=== PATIENT | female | born 1990 | race Caucasian/White ===

== ENCOUNTER 2017-02-19 08:45 | Emergency (ER) | payer MEDICAID ==
[~2017-02-19] VITALS: Ht 162.6 cm; Wt 61.7 kg
[~2017-02-19 08:45] MED LIST: BUSP5TAB3 PO; CYCL-1 PO; FAMO20TA44 PO; LORA-269 PO; NAPR-1144 PO; NITR100C6 PO; NO HOME MEDS; OMEP20CA10 PO; ONDA4TAB6 PO; PANT-47 PO; PHEN-716 PO; VALA10002 PO
[2017-02-19 10:11] VITALS: BP 101/62
== END 2017-02-19 10:10 | disposition home or self-care (01) ==
LOC: ER 08:46
DX: J02.9 Acute pharyngitis, unspecified (principal); K21.9 Gastro-esophageal reflux disease without esophagitis; Z87.11 Personal history of peptic ulcer disease; Z88.2 Allergy status to sulfonamides; Z88.1 Allergy status to other antibiotic agents
CPT/HCPCS: 87081; 87880; 99284

== ENCOUNTER 2017-03-31 18:07 | Emergency (ER) | payer SELFPAY ==
[~2017-03-31] VITALS: Ht 160 cm; Wt 59.1 kg
[~2017-03-31 18:07] MED LIST changes: -BUSP5TAB3 PO
[2017-03-31 19:24] LABS: BASOPHILS % (AUTO) 0.5 % (0-1); EOSINOPHILS # (AUTO) 0.1 X10'3 (0-0.9); EOSINOPHILS % (AUTO) 1.7 % (0-6); HEMATOCRIT 35.5 % (35.0-45.0); LYMPHOCYTES # (AUTO) 1.2 X10'3 (1.1-4.8); LYMPHOCYTES % (AUTO) 22.6 % (21-51); MEAN CORPUSCULAR HEMOGLOBIN 32.2 PG (27.0-31.0); MEAN CORPUSCULAR HGB CONC 33.8 % (33.0-36.5); MEAN CORPUSCULAR VOLUME 95.4 FL (78-98); MEAN PLATELET VOLUME 7.9 FL (7.4-10.4); MONOCYTES # (AUTO) 0.3 X10'3 (0-0.9); MONOCYTES % (AUTO) 5.5 % (2-12); NEUTROPHILS # (AUTO) 3.7 X10'3 (1.8-7.7); NEUTROPHILS % (AUTO) 69.7 % (42-75); PLATELET COUNT 291 X10'3 (140-440); RED BLOOD COUNT 3.72 X10'6 (4.20-5.60); RED CELL DISTRIBUTION WIDTH 12.4 % (11.5-14.5); WHITE BLOOD COUNT 5.3 X10'3 (4.5-11.0)
[2017-03-31 19:48] LABS: ALANINE AMINOTRANSFERASE 22 U/L (12-78); ALBUMIN 3.9 G/DL (3.4-5.0); ALBUMIN/GLOBULIN RATIO 1.3 (1.1-1.5); ALKALINE PHOSPHATASE 39 IU/L (46-116); ANION GAP 11 (8-16); ASPARTATE AMINO TRANSFERASE 16 U/L (10-37); BILIRUBIN,TOTAL 0.3 MG/DL (0.1-1.0); BLOOD UREA NITROGEN 12 MG/DL (7-18); BUN/CREATININE RATIO 19.7 (6.6-38.0); CALCIUM 8.5 MG/DL (8.5-10.1); CHLORIDE 107 MMOL/L (99-107); CREATININE 0.61 MG/DL (0.40-0.90); GLUCOSE 115 MG/DL (70-104); POTASSIUM 3.8 MMOL/L (3.5-5.1); SODIUM 144 MMOL/L (135-145); eGFR > 90 ML/MIN
[2017-03-31 19:51] LABS: D-DIMER < 0.19 MG/L FEU (0-0.50)
[2017-03-31] MEDS ORDERED: NAPR-56 PO (21:07)
[2017-03-31 21:14] VITALS: BP 111/73
== END 2017-03-31 21:16 | disposition home or self-care (01) ==
LOC: ER 18:08
DX: B34.9 Viral infection, unspecified (principal); J98.8 Other specified respiratory disorders; M79.1 Myalgia; K21.9 Gastro-esophageal reflux disease without esophagitis; G43.909 Migraine, unspecified, not intractable, without status migrainosus; Z87.11 Personal history of peptic ulcer disease; Z87.891 Personal history of nicotine dependence; Z88.2 Allergy status to sulfonamides; Z98.890 Other specified postprocedural states
CPT/HCPCS: 36415; 80053; 85025; 85379; 99284

== ENCOUNTER 2017-04-11 21:06 | Emergency (ER) | payer OTHER ==
[~2017-04-11] VITALS: Ht 162.6 cm; Wt 61.0 kg
[~2017-04-11 21:06] MED LIST changes: +METH-360 PO; +NAPR-56 PO
[2017-04-11 22:03] VITALS: BP 115/65
== END 2017-04-11 22:05 | disposition home or self-care (01) ==
LOC: ER 21:06
DX: K21.9 Gastro-esophageal reflux disease without esophagitis (principal); K27.9 Peptic ulcer, site unspecified, unspecified as acute or chronic, without hemorrhage or perforation; G43.909 Migraine, unspecified, not intractable, without status migrainosus; Z88.2 Allergy status to sulfonamides; Z88.1 Allergy status to other antibiotic agents; Z88.8 Allergy status to other drugs, medicaments and biological substances; Z79.899 Other long term (current) drug therapy
CPT/HCPCS: 99281

== ENCOUNTER 2017-05-13 20:49 | Emergency (ER) | payer OTHER ==
[~2017-05-13] VITALS: Ht 162.6 cm; Wt 61.0 kg
[~2017-05-13 20:49] MED LIST changes: -NAPR-56 PO
[2017-05-13 20:58] VITALS: BP 106/69
[2017-05-13 22:18] LABS: MONOTEST NEGATIVE (Neg)
== END 2017-05-13 23:12 | disposition home or self-care (01) ==
LOC: ER 20:50
DX: B34.9 Viral infection, unspecified (principal); G43.909 Migraine, unspecified, not intractable, without status migrainosus; K21.9 Gastro-esophageal reflux disease without esophagitis; Z88.2 Allergy status to sulfonamides; Z88.8 Allergy status to other drugs, medicaments and biological substances; Z79.899 Other long term (current) drug therapy
CPT/HCPCS: 36415; 86308; 87081; 87502; 87503; 87880; 99284

== ENCOUNTER 2017-06-02 19:50 | Emergency (ER) | payer SELFPAY ==
[~2017-06-02] VITALS: Ht 162.6 cm; Wt 59.0 kg
[2017-06-02 21:55] VITALS: BP 115/75
== END 2017-06-02 21:56 | disposition home or self-care (01) ==
LOC: ER 19:51
DX: G44.209 Tension-type headache, unspecified, not intractable (principal); G43.909 Migraine, unspecified, not intractable, without status migrainosus; K21.9 Gastro-esophageal reflux disease without esophagitis; Z88.2 Allergy status to sulfonamides; Z88.8 Allergy status to other drugs, medicaments and biological substances; Z79.899 Other long term (current) drug therapy
CPT/HCPCS: 99281

== ENCOUNTER 2017-06-19 18:22 | Emergency (ER) | payer SELFPAY ==
[~2017-06-19] VITALS: Ht 162.6 cm; Wt 57.0 kg
[2017-06-19 19:20] LABS: CLARITY,URINE SLIGHTLY CLOUDY (Clear); GLUCOSE, URINE NEGATIVE (Neg); KETONES,URINE NEGATIVE (Neg); LEUKOCYTE ESTERASE ,URINE NEGATIVE (Neg); NITRITES, URINE NEGATIVE (Neg); OCCULT BLOOD,URINE LARGE (Neg); PROTEIN,URINE NEGATIVE (Neg); UROBILINOGEN,URINE 0.2 E.U/dL (0.2-1.0)
[2017-06-19 19:33] LABS: COLOR,URINE PINK (Yellow); UA COLLECTION TYPE CLN CATCH MIDSTREAM
[2017-06-19 19:34] LABS: BACTERIA,URINE NONE SEEN /HPF (Neg); MUCUS STRANDS NONE SEEN /LPF (Neg); RBC,URINE 50-100 /HPF (0-2); SQUAMOUS EPITHELIAL CELL,UR NONE SEEN /LPF (FEW); WBC,URINE 0-4 /HPF (0-4)
[2017-06-19] MEDS ORDERED: normal saline 1000ML IV soln IVB ONE (21:15)
[2017-06-19 22:06] LABS: BASOPHILS % (AUTO) 0.1 % (0-1); EOSINOPHILS # (AUTO) 0.1 X10'3 (0-0.9); EOSINOPHILS % (AUTO) 1.6 % (0-6); HEMATOCRIT 32.5 % (35.0-45.0); HEMOGLOBIN 11.1 g/dl (12.0-16.0); LYMPHOCYTES # (AUTO) 1.5 X10'3 (1.1-4.8); LYMPHOCYTES % (AUTO) 36.1 % (21-51); MEAN CORPUSCULAR HGB CONC 34.1 % (33.0-36.5); MEAN CORPUSCULAR VOLUME 93.7 FL (78-98); MEAN PLATELET VOLUME 8.8 FL (7.4-10.4); MONOCYTES # (AUTO) 0.3 X10'3 (0-0.9); MONOCYTES % (AUTO) 6.6 % (2-12); NEUTROPHILS # (AUTO) 2.3 X10'3 (1.8-7.7); NEUTROPHILS % (AUTO) 55.6 % (42-75); PLATELET COUNT 218 X10'3 (140-440); RED BLOOD COUNT 3.47 X10'6 (4.20-5.60); RED CELL DISTRIBUTION WIDTH 12.8 % (11.5-14.5); WHITE BLOOD COUNT 4.2 X10'3 (4.5-11.0)
[2017-06-19 22:22] LABS: MONOTEST NEGATIVE (Neg)
[2017-06-19 22:23] LABS: ALANINE AMINOTRANSFERASE 16 U/L (12-78); ALBUMIN 3.5 G/DL (3.4-5.0); ALBUMIN/GLOBULIN RATIO 1.2 (1.1-1.5); ALKALINE PHOSPHATASE 34 IU/L (46-116); ANION GAP 4 (8-16); ASPARTATE AMINO TRANSFERASE 14 U/L (10-37); BILIRUBIN,TOTAL 0.2 MG/DL (0.1-1.0); BLOOD UREA NITROGEN 6 MG/DL (7-18); BUN/CREATININE RATIO 9.2 (6.6-38.0); CALCIUM 8.5 MG/DL (8.5-10.1); CHLORIDE 107 MMOL/L (99-107); CREATINE KINASE 40 U/L (26-192); CREATININE 0.65 MG/DL (0.40-0.90); GLUCOSE 116 MG/DL (70-104); LIPASE 165 U/L (73-393); PHOSPHORUS 4.1 MG/DL (2.3-4.5); POTASSIUM 3.8 MMOL/L (3.5-5.1); SODIUM 139 MMOL/L (135-145); TOTAL CARBON DIOXIDE 28.1 MMOL/L (24-32); TOTAL PROTEIN 6.4 G/DL (6.4-8.2); eGFR > 90 ML/MIN
[2017-06-19 22:27] LABS: D-DIMER < 0.19 MG/L FEU (0-0.50); PARTIAL THROMBOPLASTIN TIME 27 SECONDS (22-32); PROTHROMBIN TIME 10.4 SECONDS (9.0-12.0)
[2017-06-19 22:57] LABS: URINE HCG NEGATIVE (NEG)
[2017-06-19 23:02] LABS: CLARITY,URINE SLIGHTLY CLOUDY (Clear); COLOR,URINE RED (Yellow); GLUCOSE, URINE NEGATIVE (Neg); KETONES,URINE NEGATIVE (Neg); LEUKOCYTE ESTERASE ,URINE TRACE (Neg); NITRITES, URINE NEGATIVE (Neg); OCCULT BLOOD,URINE LARGE (Neg); PH,URINE 8.5 (4.8-8.0); PROTEIN,URINE 100 mg/dl (Neg); UROBILINOGEN,URINE 0.2 E.U/dL (0.2-1.0)
[2017-06-19 23:08] LABS: URINE AMPHETAMINE SCREEN NEGATIVE (Neg); URINE BARBITUATE SCREEN NEGATIVE (Neg); URINE BENZODIAZEPINES SCREEN NEGATIVE (Neg); URINE CANNABINOID SCREEN NEGATIVE (Neg); URINE COCAINE SCREEN NEGATIVE (Neg); URINE METHADONE SCREEN NEGATIVE (Neg); URINE OPIATE SCREEN NEGATIVE (Neg); URINE PHENCYCLIDINE SCREEN NEGATIVE (Neg)
[2017-06-19 23:11] LABS: UA COLLECTION TYPE CLN CATCH MIDSTREAM
[2017-06-19 23:15] LABS: BACTERIA,URINE 1+ /HPF (Neg); MUCUS STRANDS NONE SEEN /LPF (Neg); RBC,URINE TNTC /HPF (0-2); SQUAMOUS EPITHELIAL CELL,UR NONE SEEN /LPF (FEW); WBC,URINE 0-4 /HPF (0-4)
[2017-06-19] MEDS ORDERED: FERR325T28 PO (23:21)
[2017-06-19 23:43] VITALS: BP 124/72
[2017-06-19 23:54] LABS: % IRON SATURATION 19 % (11-46); IRON 38 UG/DL (49-151); TOTAL IRON BINDING CAPACITY 199 UG/DL (259-388)
== END 2017-06-19 23:45 | disposition home or self-care (01) ==
LOC: ER 18:22
DX: D64.9 Anemia, unspecified (principal); D72.819 Decreased white blood cell count, unspecified; R53.1 Weakness; G43.909 Migraine, unspecified, not intractable, without status migrainosus; K21.9 Gastro-esophageal reflux disease without esophagitis; Z79.899 Other long term (current) drug therapy; Z88.1 Allergy status to other antibiotic agents; Z88.2 Allergy status to sulfonamides
CPT/HCPCS: 36415; 71045; 80053; 80305; 81001; 81025; 82550; 83540; 83550; 83690; 83735; 84100; 84484; 85025; 85379; 85610; 85651; 85730; 86308; 87088; 93005; 99285

== ENCOUNTER 2017-07-23 10:03 | Emergency (ER) | payer OTHER ==
[~2017-07-23] VITALS: Ht 162.6 cm; Wt 60.0 kg
[2017-07-23 10:10] VITALS: BP 112/65
[2017-07-23] MEDS ORDERED: ketorolac trometh inj. 60 MG/2 ML VIAL IM ONE (10:20)
[2017-07-23] MEDS ORDERED: KETO10TA2 PO (10:24)
[2017-07-23] MEDS ORDERED: TRAM50TA2 PO (10:24)
[2017-07-23] MEDS ORDERED: FERR325T39 PO (10:30)
[2017-07-23] MEDS ORDERED: IBUP-1594 PO (10:30)
== END 2017-07-23 10:41 | disposition home or self-care (01) ==
LOC: ER 10:04
DX: M13.0 Polyarthritis, unspecified (principal); M25.552 Pain in left hip; M25.551 Pain in right hip; M25.561 Pain in right knee; M25.562 Pain in left knee; M25.572 Pain in left ankle and joints of left foot; G43.909 Migraine, unspecified, not intractable, without status migrainosus; K21.9 Gastro-esophageal reflux disease without esophagitis; Z87.11 Personal history of peptic ulcer disease; Z98.890 Other specified postprocedural states; Z79.899 Other long term (current) drug therapy; Z88.1 Allergy status to other antibiotic agents; Z88.8 Allergy status to other drugs, medicaments and biological substances
CPT/HCPCS: 96372; 99283; J1885

== ENCOUNTER 2017-11-20 12:55 | Emergency (ER) | payer BC, OTHER ==
[~2017-11-20] VITALS: Ht 162.6 cm; Wt 63.6 kg
[~2017-11-20 12:55] MED LIST changes: -CYCL-1 PO; -FAMO20TA44 PO; +FERR325T39 PO; +IBUP-1594 PO; -LORA-269 PO; -METH-360 PO; -NAPR-1144 PO; -NITR100C6 PO; -NO HOME MEDS; -OMEP20CA10 PO; -ONDA4TAB6 PO; -PANT-47 PO; -PHEN-716 PO; -VALA10002 PO
[2017-11-20 12:58] VITALS: BP 134/73
== END 2017-11-20 13:26 | disposition home or self-care (01) ==
LOC: ER 12:56
DX: N63.0 Unspecified lump in unspecified breast (principal); G43.909 Migraine, unspecified, not intractable, without status migrainosus; K21.9 Gastro-esophageal reflux disease without esophagitis; Z88.1 Allergy status to other antibiotic agents; Z88.2 Allergy status to sulfonamides
CPT/HCPCS: 99281

== ENCOUNTER 2018-01-22 22:41 | Emergency (ER) | payer BC ==
[~2018-01-22] VITALS: Ht 162.6 cm; Wt 63.6 kg
[2018-01-22 22:42] VITALS: BP 110/66
== END 2018-01-22 23:41 | disposition home or self-care (01) ==
LOC: ER 22:42
DX: R00.2 Palpitations (principal); R00.1 Bradycardia, unspecified; K21.9 Gastro-esophageal reflux disease without esophagitis; Z98.890 Other specified postprocedural states; Z88.1 Allergy status to other antibiotic agents; Z79.899 Other long term (current) drug therapy
CPT/HCPCS: 93005; 99283

== ENCOUNTER 2018-03-13 17:24 | Emergency (ER) | payer BC ==
[~2018-03-13] VITALS: Ht 162.6 cm; Wt 61.4 kg
[2018-03-13 18:28] LABS: BASOPHILS % (AUTO) 0.3 % (0-1); EOSINOPHILS % (AUTO) 0.9 % (0-6); HEMATOCRIT 33.7 % (35.0-45.0); HEMOGLOBIN 11.7 g/dl (12.0-16.0); LYMPHOCYTES # (AUTO) 1.2 X10'3 (1.1-4.8); LYMPHOCYTES % (AUTO) 24.4 % (21-51); MEAN CORPUSCULAR HEMOGLOBIN 32.7 PG (27.0-31.0); MEAN CORPUSCULAR HGB CONC 34.6 % (33.0-36.5); MEAN CORPUSCULAR VOLUME 94.5 FL (78-98); MEAN PLATELET VOLUME 8.3 FL (7.4-10.4); MONOCYTES # (AUTO) 0.3 X10'3 (0-0.9); MONOCYTES % (AUTO) 5.6 % (2-12); NEUTROPHILS # (AUTO) 3.3 X10'3 (1.8-7.7); NEUTROPHILS % (AUTO) 68.8 % (42-75); PLATELET COUNT 272 X10'3 (140-440); RED BLOOD COUNT 3.57 X10'6 (4.20-5.60); RED CELL DISTRIBUTION WIDTH 12.5 % (11.5-14.5); WHITE BLOOD COUNT 4.8 X10'3 (4.5-11.0)
[2018-03-13 18:45] LABS: PROTHROMBIN TIME 10.1 SECONDS (9.0-12.0)
[2018-03-13 18:46] LABS: PARTIAL THROMBOPLASTIN TIME 27 SECONDS (22-32)
[2018-03-13 18:50] LABS: ALANINE AMINOTRANSFERASE 21 U/L (12-78); ALBUMIN 3.9 G/DL (3.4-5.0); ALBUMIN/GLOBULIN RATIO 1.1 (1.1-1.5); ALKALINE PHOSPHATASE 48 IU/L (46-116); ANION GAP 9 (8-16); ASPARTATE AMINO TRANSFERASE 14 U/L (10-37); BILIRUBIN,TOTAL 0.2 MG/DL (0.1-1.0); BLOOD UREA NITROGEN 14 MG/DL (7-18); BUN/CREATININE RATIO 16.1 (6.6-38.0); CALCIUM 8.3 MG/DL (8.5-10.1); CHLORIDE 104 MMOL/L (99-107); CREATININE 0.87 MG/DL (0.40-0.90); GLUCOSE 99 MG/DL (70-104); POTASSIUM 3.3 MMOL/L (3.5-5.1); SODIUM 141 MMOL/L (135-145); TOTAL CARBON DIOXIDE 27.7 MMOL/L (24-32); TOTAL PROTEIN 7.5 G/DL (6.4-8.2); eGFR 78 ML/MIN
[2018-03-13] MEDS: potassium Cl 20 mEq SR tablet PO STA ×2 (20:12→20:19)
--- NOTE | 2018-03-13 20:16 | NUR ---
Patient unable to swallow KDUR tablets. Order changed to liquid.
[2018-03-13] MEDS ORDERED: potassium Cl oral solution 20 MEQ/15 ML PO ONE (20:20)
[2018-03-13 20:30] VITALS: BP 120/70
== END 2018-03-13 20:31 | disposition home or self-care (01) ==
LOC: ER 17:24
DX: R07.89 Other chest pain (principal); E87.6 Hypokalemia; F41.9 Anxiety disorder, unspecified; G43.909 Migraine, unspecified, not intractable, without status migrainosus; K21.9 Gastro-esophageal reflux disease without esophagitis; F32.9 Major depressive disorder, single episode, unspecified; F17.210 Nicotine dependence, cigarettes, uncomplicated; Z98.890 Other specified postprocedural states; Z87.11 Personal history of peptic ulcer disease; Z88.1 Allergy status to other antibiotic agents; Z88.8 Allergy status to other drugs, medicaments and biological substances
CPT/HCPCS: 36415; 71045; 80053; 84484; 85025; 85610; 85730; 93005; 99284

== ENCOUNTER 2018-06-01 08:57 | Emergency (ER) | payer MEDICAID ==
[~2018-06-01] VITALS: Ht 162.6 cm; Wt 65.0 kg
[2018-06-01] MEDS ORDERED: ketorolac trometh inj. 60 MG/2 ML VIAL IM ONE (09:10)
[2018-06-01] MEDS ORDERED: ondansetron 4mg rapidly disintigrating tab PO ONE (09:10)
[2018-06-01 09:21] VITALS: BP 123/70
[2018-06-01] MEDS ORDERED: ONDA4TAB6 PO (10:06)
== END 2018-06-01 10:11 | disposition home or self-care (01) ==
LOC: ER 08:57
DX: R11.2 Nausea with vomiting, unspecified (principal); R19.7 Diarrhea, unspecified; R42 Dizziness and giddiness; G43.909 Migraine, unspecified, not intractable, without status migrainosus; K21.9 Gastro-esophageal reflux disease without esophagitis; E11.9 Type 2 diabetes mellitus without complications; I25.10 Atherosclerotic heart disease of native coronary artery without angina pectoris; Z87.11 Personal history of peptic ulcer disease; Z79.899 Other long term (current) drug therapy; Z98.890 Other specified postprocedural states; Z88.1 Allergy status to other antibiotic agents; Z88.2 Allergy status to sulfonamides
CPT/HCPCS: 96372; 99283; J1885

== ENCOUNTER 2019-01-04 12:15 | Inpatient (IN) | payer OTHER ==
[~2019-01-04] VITALS: Ht 162.6 cm; Wt 60.0 kg
[~2019-01-04 12:15] MED LIST changes: +ONDA4TAB6 PO
[2019-01-04 12:39] LABS: CLARITY,URINE CLOUDY (Clear); COLOR,URINE RED (Yellow); GLUCOSE, URINE NEGATIVE (Neg); KETONES,URINE NEGATIVE (Neg); LEUKOCYTE ESTERASE ,URINE TRACE (Neg); NITRITES, URINE NEGATIVE (Neg); OCCULT BLOOD,URINE LARGE (Neg); PH,URINE 6.5 (4.8-8.0); PROTEIN,URINE TRACE mg/dl (Neg); UA COLLECTION TYPE CLN CATCH MIDSTREAM; URINE HCG NEGATIVE (NEG); UROBILINOGEN,URINE 0.2 E.U/dL (0.2-1.0)
[2019-01-04 12:46] LABS: BASOPHILS % (AUTO) 0.3 % (0-1); EOSINOPHILS % (AUTO) 0.3 % (0-6); HEMATOCRIT 36.1 % (35.0-45.0); HEMOGLOBIN 12.4 g/dl (12.0-16.0); LYMPHOCYTES # (AUTO) 0.9 X10'3 (1.1-4.8); LYMPHOCYTES % (AUTO) 21.7 % (21-51); MEAN CORPUSCULAR HEMOGLOBIN 32.8 PG (27.0-31.0); MEAN CORPUSCULAR HGB CONC 34.4 g/dL (33.0-36.5); MEAN CORPUSCULAR VOLUME 95.4 FL (78-98); MEAN PLATELET VOLUME 8.1 FL (7.4-10.4); MONOCYTES # (AUTO) 0.4 X10'3 (0-0.9); MONOCYTES % (AUTO) 8.4 % (2-12); NEUTROPHILS % (AUTO) 69.3 % (42-75); PLATELET COUNT 290 X10'3 (140-440); RED BLOOD COUNT 3.78 X10'6 (4.20-5.60); RED CELL DISTRIBUTION WIDTH 12.4 % (11.5-14.5); WHITE BLOOD COUNT 4.3 X10'3 (4.5-11.0)
[2019-01-04 12:49] LABS: BACTERIA,URINE FEW /HPF (Neg); MUCUS STRANDS NONE SEEN /LPF (Neg); RBC,URINE TNTC /HPF (0-2); SQUAMOUS EPITHELIAL CELL,UR FEW /LPF (FEW); WBC,URINE 0-4 /HPF (0-4)
[2019-01-04] MEDS ORDERED: ondansetron/PF 4mg/2ml inj IV ONE (12:55)
[2019-01-04] MEDS ORDERED: normal saline 1000ML IV soln IVB ONE (12:55)
[2019-01-04] MEDS ORDERED: morphine 4 MG/ML inj SYRINge IV ONE (12:55)
[2019-01-04 13:02] LABS: ALANINE AMINOTRANSFERASE 16 U/L (12-78); ALBUMIN 3.7 G/DL (3.4-5.0); ALKALINE PHOSPHATASE 49 IU/L (46-116); ANION GAP 8 (8-16); ASPARTATE AMINO TRANSFERASE 12 U/L (10-37); BILIRUBIN,TOTAL 0.3 MG/DL (0.1-1.0); BLOOD UREA NITROGEN 9 MG/DL (7-18); BUN/CREATININE RATIO 13.8 (6.6-38.0); CALCIUM 8.6 MG/DL (8.5-10.1); CHLORIDE 105 MMOL/L (99-107); CREATININE 0.65 MG/DL (0.40-0.90); GLUCOSE 78 MG/DL (70-104); LIPASE 172 U/L (73-393); POTASSIUM 3.7 MMOL/L (3.5-5.1); SODIUM 141 MMOL/L (135-145); TOTAL CARBON DIOXIDE 27.8 MMOL/L (24-32); TOTAL PROTEIN 7.5 G/DL (6.4-8.2); eGFR > 90 ML/MIN
[2019-01-04] MEDS ORDERED: fentaNYL/PF 50MCG/1 ML 2ML syringe IV PRN (13:15)
[2019-01-04] MEDS ORDERED: MULT-933 PO (13:37)
[2019-01-04] MEDS ORDERED: ONDA4TAB11 PO (13:37)
--- NOTE | 2019-01-04 13:48 | NUR ---
RELIEVING RN FOR BREAK, PT AMB WITH STEADY GAIT TO RESTROOM, PT C/O RUQ ABD PAIN "JUST DULL PAIN NOW", 07/30
[2019-01-04] MEDS ORDERED: potassium CL 10mEq/100ml bag 100 ML IV PRN ×2 (14:50)
[2019-01-04] MEDS ORDERED: magnesium Cl slow-release 64mg tablet PO PRN (14:50)
[2019-01-04] MEDS ORDERED: acetaminophen 325mg tablet PO PRN (14:50)
[2019-01-04] MEDS ORDERED: magnesium 2GM in 50ml NS 50 ML IV PRN (14:50)
[2019-01-04] MEDS ORDERED: potassium Cl 20 mEq SR tablet PO PRN ×2 (14:50)
[2019-01-04] MEDS ORDERED: magnesium 4gm in 100ml NS 100 ML IV PRN (14:50)
[2019-01-04] MEDS: morphine 2 MG/ML inj. syringe IV PRN (16:21)
[2019-01-04] MEDS ORDERED: ketorolac tromethamine 15mg/ml inj. IM PRN (17:50)
[2019-01-04 17:54] VITALS: BP 129/62
[2019-01-04] MEDS: normal saline 1000ml 1,000 ML IV SCH ×2 (18:07→22:49)
--- NOTE | 2019-01-04 18:10 | NUR ---
Patient in room [facility]. I have received report from Sammie QUEZADA and had the opportunity to ask questions and assume patient care.
[2019-01-04 20:00] VITALS: BP 106/62
[2019-01-04] MEDS: diatr meglu/diatrizoate 30ml oral sol.-(3 dose) bottle PO SCH (20:08)
[2019-01-04] MEDS: ondansetron/PF 4mg/2ml inj IV PRN (20:10)
[2019-01-04] MEDS: ketorolac tromethamine 15mg/ml inj. IV PRN (23:06)
[2019-01-05] VITALS (16 sets, daily range): BP systolic 91–137; BP diastolic 53–80
[2019-01-05 05:35] LABS: BASOPHILS % (AUTO) 0.3 % (0-1); EOSINOPHILS % (AUTO) 0.8 % (0-6); HEMATOCRIT 30.5 % (35.0-45.0); HEMOGLOBIN 10.7 g/dl (12.0-16.0); LYMPHOCYTES # (AUTO) 1.2 X10'3 (1.1-4.8); LYMPHOCYTES % (AUTO) 39.6 % (21-51); MEAN CORPUSCULAR HEMOGLOBIN 33.9 PG (27.0-31.0); MEAN CORPUSCULAR HGB CONC 35.2 g/dL (33.0-36.5); MEAN CORPUSCULAR VOLUME 96.3 FL (78-98); MEAN PLATELET VOLUME 8.2 FL (7.4-10.4); MONOCYTES # (AUTO) 0.3 X10'3 (0-0.9); MONOCYTES % (AUTO) 9.3 % (2-12); NEUTROPHILS # (AUTO) 1.5 X10'3 (1.8-7.7); PLATELET COUNT 214 X10'3 (140-440); RED BLOOD COUNT 3.16 X10'6 (4.20-5.60); RED CELL DISTRIBUTION WIDTH 12.3 % (11.5-14.5); WHITE BLOOD COUNT 3.1 X10'3 (4.5-11.0)
[2019-01-05 05:59] LABS: ALBUMIN 2.9 G/DL (3.4-5.0); ANION GAP 7 (8-16); BLOOD UREA NITROGEN 9 MG/DL (7-18); BUN/CREATININE RATIO 16.7 (6.6-38.0); CHLORIDE 110 MMOL/L (99-107); CREATININE 0.54 MG/DL (0.40-0.90); GLUCOSE 89 MG/DL (70-104); MAGNESIUM 1.8 MG/DL (1.5-2.4); POTASSIUM 3.9 MMOL/L (3.5-5.1); SODIUM 142 MMOL/L (135-145); TOTAL CARBON DIOXIDE 25.3 MMOL/L (24-32); eGFR > 90 ML/MIN
--- NOTE | 2019-01-05 06:23 | NUR ---
Problems reprioritized. Patient report given, questions answered & plan of care reviewed with Harshil RN.
--- NOTE | 2019-01-05 06:30 | NUR ---
Patient in room [facility]. I have received report from John QUEZADA and had the opportunity to ask questions and assume patient care.
[2019-01-05] MEDS: normal saline 1000ml 1,000 ML IV SCH ×3 (06:49→22:49)
[2019-01-05] MEDS: diatr meglu/diatrizoate 30ml oral sol.-(3 dose) bottle PO SCH ×2 (07:05→10:17)
[2019-01-05] MEDS: ondansetron/PF 4mg/2ml inj IV PRN ×2 (07:10→20:32)
[2019-01-05] MEDS: K and/or MAG REPLACEMENT MC SCH (08:00)
[2019-01-05] MEDS: SINCALIDE IV ONE ×2 (09:14→09:38)
[2019-01-05] MEDS: NORMAL SALINE IV ONE ×2 (09:14→09:38)
[2019-01-05] MEDS ORDERED: iohexol 350MG/ML 100ml bottle IV ONE (10:17)
[2019-01-05] MEDS: ketorolac tromethamine 15mg/ml inj. IV PRN ×2 (11:04→22:11)
[2019-01-05] MEDS ORDERED: hydrALAZINE 20mg/ml inj. IV PRN (16:05)
[2019-01-05] MEDS ORDERED: ringers solution, lacted 1,000 ML IV SCH (16:05)
[2019-01-05] MEDS ORDERED: labetalol 20mg/4ml (5mg/ml) syringe IV PRN (16:05)
[2019-01-05] MEDS ORDERED: morphine 4 MG/ML inj SYRINge IV PRN ×2 (16:05)
[2019-01-05] MEDS ORDERED: fentaNYL/PF 50MCG/1 ML 2ML syringe IV PRN ×2 (16:05)
[2019-01-05] MEDS ORDERED: ondansetron/PF 4mg/2ml inj IV PRN (16:05)
[2019-01-05] MEDS ORDERED: propofol inj 20 ML IV ONE (16:43)
[2019-01-05] MEDS ORDERED: LIDOcaine 2% (20mg/ml) 5ml vial ONE (16:43)
[2019-01-05] MEDS ORDERED: glycopyrrolate 0.2mg/ml inj ONE (16:44)
[2019-01-05] MEDS ORDERED: dexamethasone sod phosphate 4mg/ml inj. ONE (16:44)
[2019-01-05] MEDS ORDERED: ondansetron/PF 4mg/2ml inj ONE (16:44)
[2019-01-05] MEDS ORDERED: rocuronium 10mg/ml inj IV ONE (16:44)
[2019-01-05] MEDS ORDERED: neostigmine methylsulfate 1 MG/ML 10ml vial ONE (16:44)
[2019-01-05] MEDS ORDERED: ceFOXitin 2 GM ADDVANTGE BAG 50 ML IV ONE (16:51)
[2019-01-05] MEDS ORDERED: BUPIVAcaine/PF 2.5 mg/ml (0.25%) 30ml vial ONE (16:51)
[2019-01-05] MEDS ORDERED: dextrose 50%-water 50ml dispensing syringe IV ONE (17:30)
--- NOTE | 2019-01-05 17:36 | NUR ---
Patient blood sugar taken before surgery, patient BG was 64. Obtained order from MD to give 25mL of dex 50 which was administered as patient went to procedure. Recovery notified of original BG at this time
[2019-01-05] MEDS ORDERED: sevoflurane 250ml liquid IH ONE (17:55)
[2019-01-05] MEDS ORDERED: acetaminophen 1000 MG/100ml vial IV ONE (17:55)
[2019-01-05] MEDS ORDERED: fentaNYL/PF 50MCG/1 ML 2ML syringe ONE (17:56)
[2019-01-05] MEDS ORDERED: midazolam 2 mg/2 ml injection ONE (17:57)
--- NOTE | 2019-01-05 18:10 | NUR ---
Patient in OR. Received report from Harshil RN. Will assume care upon arrival to unit.
[2019-01-05] MEDS ORDERED: acetaminophen 1,000mg/100ml IV 100 ML IV ONE (18:24)
--- NOTE | 2019-01-05 18:30 | NUR ---
Problems reprioritized. Patient report given, questions answered & plan of care reviewed with John QUEZADA.
--- NOTE | 2019-01-05 18:55 | NUR ---
ADMITTED TO PACU FROM OR ACCOMPANIED BY ANESTHESIA. INTIAL PHYSICAL ASSESSMENT DONE AND RECORDED. REPORT RECEIVED FROM ANESTHESIA.
[2019-01-05] MEDS ORDERED: meperidine/PF 25mg/ml syringe ONE (18:58)
--- NOTE | 2019-01-05 19:45 | NUR ---
PACU DISCHARGE CRITERIA MET, REPORT GIVEN TO FLOOR. MEDICATED FOR PAIN AND SHIVERING ON ARRIVAL TO PACU, TRANSFERRED TO ROOM IN STABLE GOOD CONDITION.
[2019-01-05] MEDS: morphine 2 MG/ML inj. syringe IV PRN (19:46)
[2019-01-05] MEDS: HYDROcodone/acetaminophen 10/325mg tab PO PRN (20:29)
[2019-01-06] VITALS: BP 121/68
[2019-01-06] MEDS: HYDROcodone/acetaminophen 10/325mg tab PO PRN ×3 (01:12→13:51)
[2019-01-06] MEDS: ondansetron/PF 4mg/2ml inj IV PRN ×2 (02:45→10:37)
[2019-01-06 04:50] VITALS: BP 103/58
[2019-01-06 05:44] LABS: ALBUMIN 3.2 G/DL (3.4-5.0); ANION GAP 9 (8-16); BLOOD UREA NITROGEN 5 MG/DL (7-18); BUN/CREATININE RATIO 8.5 (6.6-38.0); CALCIUM 8.3 MG/DL (8.5-10.1); CHLORIDE 105 MMOL/L (99-107); CREATININE 0.59 MG/DL (0.40-0.90); GLUCOSE 114 MG/DL (70-104); MAGNESIUM 1.8 MG/DL (1.5-2.4); POTASSIUM 3.8 MMOL/L (3.5-5.1); SODIUM 139 MMOL/L (135-145); TOTAL CARBON DIOXIDE 25.2 MMOL/L (24-32); eGFR > 90 ML/MIN
[2019-01-06 05:49] LABS: BASOPHILS % (AUTO) 0.1 % (0-1); EOSINOPHILS % (AUTO) 0 % (0-6); HEMATOCRIT 31.6 % (35.0-45.0); HEMOGLOBIN 11.1 g/dl (12.0-16.0); LYMPHOCYTES # (AUTO) 0.3 X10'3 (1.1-4.8); LYMPHOCYTES % (AUTO) 6.1 % (21-51); MEAN CORPUSCULAR HEMOGLOBIN 33.8 PG (27.0-31.0); MEAN CORPUSCULAR HGB CONC 35.1 g/dL (33.0-36.5); MEAN CORPUSCULAR VOLUME 96.3 FL (78-98); MEAN PLATELET VOLUME 8.3 FL (7.4-10.4); MONOCYTES # (AUTO) 0.1 X10'3 (0-0.9); MONOCYTES % (AUTO) 1.3 % (2-12); NEUTROPHILS # (AUTO) 4.9 X10'3 (1.8-7.7); NEUTROPHILS % (AUTO) 92.5 % (42-75); PLATELET COUNT 247 X10'3 (140-440); RED BLOOD COUNT 3.29 X10'6 (4.20-5.60); RED CELL DISTRIBUTION WIDTH 12.3 % (11.5-14.5); WHITE BLOOD COUNT 5.3 X10'3 (4.5-11.0)
--- NOTE | 2019-01-06 06:25 | NUR ---
Problems reprioritized. Patient report given, questions answered & plan of care reviewed with Harshil RN.
--- NOTE | 2019-01-06 06:30 | NUR ---
Patient in room [facility]. I have received report from John QUEZADA and had the opportunity to ask questions and assume patient care.
[2019-01-06] MEDS: normal saline 1000ml 1,000 ML IV SCH ×2 (06:49→13:32)
[2019-01-06] MEDS: K and/or MAG REPLACEMENT MC SCH (08:00)
[2019-01-06] MEDS: morphine 2 MG/ML inj. syringe IV PRN (10:36)
[2019-01-06 11:00] VITALS: BP 106/56
--- NOTE | 2019-01-06 18:40 | NUR ---
Problems reprioritized. Patient report given, questions answered & plan of care reviewed with Terrie QUEZADA.
--- NOTE | 2019-01-06 18:55 | NUR ---
Patient in room [facility]. I have received report from Harshil Long and had the opportunity to ask questions and assume patient care. Addendum: 01/06/19 at 1856 by Terrie Solis RN Amended: Links added.
--- NOTE | 2019-01-06 19:30 | NUR ---
pt c/o pain and medicated with diluted with saline Iv toradol pt tolerated well.
[2019-01-06] MEDS: ketorolac tromethamine 15mg/ml inj. IV PRN (19:35)
[2019-01-06] MEDS: magnesium hydroxide 30ml (MOM) UD suspension PO SCH (19:35)
--- NOTE | 2019-01-06 19:50 | NUR ---
pt up ambulated to brp after checking blood pressure to see if it was up. then got up with Mom to ambulate with walker up in the [facility].
[2019-01-06 20:00] VITALS: BP 95/48
[2019-01-06 20:30] VITALS: BP 116/69
--- NOTE | 2019-01-06 22:00 | NUR ---
resting right side without s&s of distress at this time.
[2019-01-07] VITALS: BP 93/41
--- NOTE | 2019-01-07 00:05 | NUR ---
pt resting eyes closed without changes.
--- NOTE | 2019-01-07 02:05 | NUR ---
resting eyes closed without s&s of distress at this time.
--- NOTE | 2019-01-07 04:00 | NUR ---
resting without changes.
--- NOTE | 2019-01-07 04:30 | NUR ---
awoke when lab in MRSA swab done. c/o pain and medicated for this.
[2019-01-07] MEDS: HYDROcodone/acetaminophen 10/325mg tab PO PRN ×2 (04:42→13:21)
--- NOTE | 2019-01-07 05:19 | NUR ---
pt passing gas sipping on water and post op teaching done with her regarding why passing gas and stool so important. post op care for infection prevention, etc.
[2019-01-07 05:22] LABS: BASOPHILS % (AUTO) 0.2 % (0-1); EOSINOPHILS % (AUTO) 0.3 % (0-6); HEMATOCRIT 29.2 % (35.0-45.0); LYMPHOCYTES # (AUTO) 1.6 X10'3 (1.1-4.8); MEAN CORPUSCULAR HEMOGLOBIN 33.1 PG (27.0-31.0); MEAN CORPUSCULAR HGB CONC 34.2 g/dL (33.0-36.5); MEAN CORPUSCULAR VOLUME 96.7 FL (78-98); MEAN PLATELET VOLUME 8.3 FL (7.4-10.4); MONOCYTES # (AUTO) 0.2 X10'3 (0-0.9); MONOCYTES % (AUTO) 5.3 % (2-12); NEUTROPHILS # (AUTO) 2.2 X10'3 (1.8-7.7); NEUTROPHILS % (AUTO) 55.2 % (42-75); PLATELET COUNT 199 X10'3 (140-440); RED BLOOD COUNT 3.02 X10'6 (4.20-5.60); RED CELL DISTRIBUTION WIDTH 12.6 % (11.5-14.5)
[2019-01-07 05:28] LABS: ALBUMIN 2.7 G/DL (3.4-5.0); ANION GAP 5 (8-16); BLOOD UREA NITROGEN 7 MG/DL (7-18); BUN/CREATININE RATIO 12.5 (6.6-38.0); CALCIUM 7.9 MG/DL (8.5-10.1); CHLORIDE 109 MMOL/L (99-107); CREATININE 0.56 MG/DL (0.40-0.90); GLUCOSE 91 MG/DL (70-104); MAGNESIUM 2.1 MG/DL (1.5-2.4); POTASSIUM 3.6 MMOL/L (3.5-5.1); SODIUM 141 MMOL/L (135-145); TOTAL CARBON DIOXIDE 27.1 MMOL/L (24-32); eGFR > 90 ML/MIN
--- NOTE | 2019-01-07 06:48 | NUR ---
Problems reprioritized. Patient report given, questions answered & plan of care reviewed with Kris Long. Addendum: 01/07/19 at 0648 by Terrie Solis RN Amended: Links added.
--- NOTE | 2019-01-07 06:52 | NUR ---
Patient in room [facility]. I have received report from Terrie QUEZADA and had the opportunity to ask questions and assume patient care.
[2019-01-07 07:00] VITALS: BP 110/53
[2019-01-07] MEDS: K and/or MAG REPLACEMENT MC SCH (08:00)
[2019-01-07] MEDS: ketorolac tromethamine 15mg/ml inj. IV PRN (08:40)
[2019-01-07] MEDS: magnesium hydroxide 30ml (MOM) UD suspension PO SCH (08:40)
[2019-01-07] MEDS: ondansetron/PF 4mg/2ml inj IV PRN (09:16)
[2019-01-07 11:00] VITALS: BP 109/62
[2019-01-07] MEDS ORDERED: HYDR-4353 PO (12:54)
--- NOTE | 2019-01-07 14:33 | NUR ---
Discharged patient home, discharge instructions given to patient and at bedside. Patient verbalized understanding of all instructions made. Peripheral IV catheter removed, tip intact. Original written prescription for [place] given to patient (clipped on the discharge folder). Patient's lap bandages changed after it got wet when she took shower, incision looks fine, sutures intact, no signs of infection. Instructed patient to report to the doctor any signs of wound infection
== END 2019-01-07 14:33 | disposition home or self-care (01) | DRG 418 ==
LOC: ER 12:16 → ED HOLD 14:59 → SUR 3N 15:36
PROVIDERS: ADMIT Internal Medicine; ATTEND Family Medicine
PROC: CF1YYZZ Planar Nuclear Medicine Imaging of Hepatobiliary System and Pancreas using Other Radionuclide (ICD-10-PCS; 2019-01-05)
PROC: BW251ZZ Computerized Tomography (CT Scan) of Chest, Abdomen and Pelvis using Low Osmolar Contrast (ICD-10-PCS; 2019-01-05)
PROC: 0FT44ZZ Resection of Gallbladder, Percutaneous Endoscopic Approach (ICD-10-PCS; principal; 2019-01-05 17:55)
DX: K82.8 Other specified diseases of gallbladder (principal); K56.7 Ileus, unspecified; D64.9 Anemia, unspecified; F41.9 Anxiety disorder, unspecified; G43.909 Migraine, unspecified, not intractable, without status migrainosus; K21.9 Gastro-esophageal reflux disease without esophagitis; F32.9 Major depressive disorder, single episode, unspecified; Z82.49 Family history of ischemic heart disease and other diseases of the circulatory system; Z83.3 Family history of diabetes mellitus; Z87.11 Personal history of peptic ulcer disease; Z98.891 History of uterine scar from previous surgery; Z88.2 Allergy status to sulfonamides; Z88.1 Allergy status to other antibiotic agents
CPT/HCPCS: 96374; 96375; 99285; Z7506; 36415; 71260; 74177; 78227; 80048; 80053; 81001; 81025; 82948; 83690; 83735; 85025; 87081; 87088; A4215; A4618; A7000; A9537; G0378; J0131; J0694; J1100; J1885; J2001; J2175; J2250; J2270; J2405; J2704; J2710; J2805; J3010; J3490; J7030; J7120; Q9963; Q9967

== ENCOUNTER 2019-03-25 15:58 | Emergency (ER) | payer SELFPAY ==
[~2019-03-25] VITALS: Ht 162.6 cm; Wt 60.3 kg
[~2019-03-25 15:58] MED LIST changes: -FERR325T39 PO; +HYDR-4353 PO; -IBUP-1594 PO; -ONDA4TAB6 PO
[2019-03-25 16:45] LABS: EOSINOPHILS # (AUTO) 0.1 X10'3 (0-0.9); HEMOGLOBIN 12.3 g/dl (12.0-16.0); MEAN CORPUSCULAR VOLUME 95.2 FL (78-98); NEUTROPHILS # (AUTO) 3.6 X10'3 (1.8-7.7); WHITE BLOOD COUNT 5.5 X10'3 (4.5-11.0)
[2019-03-25 16:46] LABS: BASOPHILS % (AUTO) 0.3 % (0-1); EOSINOPHILS % (AUTO) 1.1 % (0-6); HEMATOCRIT 36.1 % (35.0-45.0); LYMPHOCYTES # (AUTO) 1.4 X10'3 (1.1-4.8); MEAN CORPUSCULAR HEMOGLOBIN 32.3 PG (27.0-31.0); MEAN CORPUSCULAR HGB CONC 33.9 g/dL (33.0-36.5); MEAN PLATELET VOLUME 8.4 FL (7.4-10.4); MONOCYTES # (AUTO) 0.4 X10'3 (0-0.9); MONOCYTES % (AUTO) 6.7 % (2-12); NEUTROPHILS % (AUTO) 65.9 % (42-75); PLATELET COUNT 271 X10'3 (140-440); RED BLOOD COUNT 3.79 X10'6 (4.20-5.60); RED CELL DISTRIBUTION WIDTH 12.3 % (11.5-14.5)
[2019-03-25 16:55] LABS: URINE HCG NEGATIVE (NEG)
[2019-03-25 17:01] LABS: CLARITY,URINE CLEAR (Clear); COLOR,URINE YELLOW (Yellow); GLUCOSE, URINE NEGATIVE (Neg); KETONES,URINE NEGATIVE (Neg); LEUKOCYTE ESTERASE ,URINE NEGATIVE (Neg); NITRITES, URINE NEGATIVE (Neg); OCCULT BLOOD,URINE NEGATIVE (Neg); PH,URINE 6.5 (4.8-8.0); PROTEIN,URINE NEGATIVE (Neg); UROBILINOGEN,URINE 0.2 E.U/dL (0.2-1.0)
[2019-03-25 17:02] LABS: ALANINE AMINOTRANSFERASE 33 U/L (12-78); ALBUMIN 3.9 G/DL (3.4-5.0); ALBUMIN/GLOBULIN RATIO 1.1 (1.1-1.5); ALKALINE PHOSPHATASE 40 IU/L (46-116); ANION GAP 4 (8-16); ASPARTATE AMINO TRANSFERASE 32 U/L (10-37); BILIRUBIN,TOTAL 0.3 MG/DL (0.1-1.0); BLOOD UREA NITROGEN 13 MG/DL (7-18); BUN/CREATININE RATIO 18.1 (6.6-38.0); CALCIUM 8.6 MG/DL (8.5-10.1); CHLORIDE 105 MMOL/L (99-107); CREATININE 0.72 MG/DL (0.40-0.90); GLUCOSE 97 MG/DL (70-104); LIPASE 175 U/L (73-393); POTASSIUM 3.7 MMOL/L (3.5-5.1); SODIUM 139 MMOL/L (135-145); TOTAL CARBON DIOXIDE 30.4 MMOL/L (24-32); TOTAL PROTEIN 7.3 G/DL (6.4-8.2); eGFR > 90 ML/MIN
[2019-03-25 17:02] LABS: UA COLLECTION TYPE CLN CATCH MIDSTREAM
[2019-03-25] MEDS ORDERED: ketorolac tromethamine 15mg/ml inj. IM ONE (17:15)
[2019-03-25 19:29] VITALS: BP 111/70
== END 2019-03-25 19:31 | disposition home or self-care (01) ==
LOC: ER 15:58
DX: R10.32 Left lower quadrant pain (principal); R10.2 Pelvic and perineal pain; R19.7 Diarrhea, unspecified; G43.909 Migraine, unspecified, not intractable, without status migrainosus; K21.9 Gastro-esophageal reflux disease without esophagitis; F41.9 Anxiety disorder, unspecified; F32.9 Major depressive disorder, single episode, unspecified; F10.99 Alcohol use, unspecified with unspecified alcohol-induced disorder; Z90.49 Acquired absence of other specified parts of digestive tract; Z98.890 Other specified postprocedural states; Z88.1 Allergy status to other antibiotic agents; Z88.2 Allergy status to sulfonamides; Z79.899 Other long term (current) drug therapy; Y90.9 Presence of alcohol in blood, level not specified
CPT/HCPCS: 36415; 76830; 76856; 80053; 81003; 81025; 83690; 85025; 96372; 99284; J1885

== ENCOUNTER 2019-04-06 18:50 | Emergency (ER) | payer SELFPAY ==
[~2019-04-06] VITALS: Ht 162.6 cm; Wt 59.5 kg
[2019-04-06 18:59] VITALS: BP 113/81
--- NOTE | 2019-04-06 19:28 | NUR ---
DR SALAS WITH PT TALKIG WITH HER ABOUT NO NEED FOR FURTHER DIAGNOSISTICS. PT REPORTSDANIELDoris HAS BNEEN WORKING OUT ALOT AND IS SORE ACROSS HER CHEST LIKELY FROM THIS. STATES SHE IS VERY HEALTHY AND EATS HEALTHY
== END 2019-04-06 19:44 | disposition home or self-care (01) ==
LOC: ER 18:51
DX: R00.2 Palpitations (principal); G43.909 Migraine, unspecified, not intractable, without status migrainosus; K21.9 Gastro-esophageal reflux disease without esophagitis; F41.9 Anxiety disorder, unspecified; F32.9 Major depressive disorder, single episode, unspecified; Z90.49 Acquired absence of other specified parts of digestive tract; Z88.1 Allergy status to other antibiotic agents; Z88.2 Allergy status to sulfonamides; Z88.8 Allergy status to other drugs, medicaments and biological substances; Z79.899 Other long term (current) drug therapy; Z72.89 Other problems related to lifestyle
CPT/HCPCS: 93005; 99283

== ENCOUNTER 2019-08-28 14:22 | Emergency (ER) | payer BC ==
[~2019-08-28] VITALS: Ht 162.6 cm; Wt 55.9 kg
[2019-08-28 14:24] VITALS: BP 109/54
[2019-08-28] MEDS ORDERED: docusate sodium 100mg/10ml UD cup PO STA (14:53)
[2019-08-28] MEDS ORDERED: polyethylene glycol 3350 17gm powd pack PO STA (14:53)
== END 2019-08-28 17:05 | disposition home or self-care (01) ==
LOC: ER 14:23
DX: K59.00 Constipation, unspecified (principal); R10.30 Lower abdominal pain, unspecified; G43.909 Migraine, unspecified, not intractable, without status migrainosus; K21.9 Gastro-esophageal reflux disease without esophagitis; F41.9 Anxiety disorder, unspecified; Z90.49 Acquired absence of other specified parts of digestive tract; Z98.890 Other specified postprocedural states; Z72.89 Other problems related to lifestyle; Z88.1 Allergy status to other antibiotic agents; Z88.2 Allergy status to sulfonamides; Z88.8 Allergy status to other drugs, medicaments and biological substances; Z79.899 Other long term (current) drug therapy
CPT/HCPCS: 99284

== ENCOUNTER 2020-01-12 19:36 | Emergency (ER) | payer BC ==
[~2020-01-12] VITALS: Ht 162.6 cm; Wt 54.5 kg
[2020-01-12 20:04] LABS: COLOR,URINE YELLOW (Yellow); GLUCOSE, URINE NEGATIVE (Neg); KETONES,URINE NEGATIVE (Neg); LEUKOCYTE ESTERASE ,URINE NEGATIVE (Neg); NITRITES, URINE NEGATIVE (Neg); OCCULT BLOOD,URINE LARGE (Neg); PH,URINE 7.5 (4.8-8.0); PROTEIN,URINE NEGATIVE (Neg); UROBILINOGEN,URINE 0.2 E.U/dL (0.2-1.0)
[2020-01-12 20:07] LABS: URINE HCG NEGATIVE (NEG)
[2020-01-12 20:09] LABS: CLARITY,URINE SLIGHTLY CLOUDY (Clear); UA COLLECTION TYPE CLN CATCH MIDSTREAM
[2020-01-12 20:10] LABS: WBC,URINE NONE SEEN /HPF (0-4)
[2020-01-12 20:11] LABS: BACTERIA,URINE FEW /HPF (Neg); SQUAMOUS EPITHELIAL CELL,UR FEW /LPF (FEW)
[2020-01-12] MEDS ORDERED: normal saline 1000ML IV soln IVB ONE (20:40)
--- NOTE | 2020-01-12 20:55 | NUR ---
U/S CALLED BACK AT [address]
[2020-01-12 21:37] LABS: EOSINOPHILS # (AUTO) 0.1 X10'3 (0-0.9); MONOCYTES # (AUTO) 0.3 X10'3 (0-0.9); NEUTROPHILS # (AUTO) 2.6 X10'3 (1.8-7.7); RED CELL DISTRIBUTION WIDTH 12.7 % (11.5-14.5)
[2020-01-12 21:38] LABS: BASOPHILS % (AUTO) 0.5 % (0-1); EOSINOPHILS % (AUTO) 1.5 % (0-6); LYMPHOCYTES # (AUTO) 1.8 X10'3 (1.1-4.8); LYMPHOCYTES % (AUTO) 37.4 % (21-51); MEAN CORPUSCULAR HEMOGLOBIN 34.1 PG (27.0-31.0); MEAN CORPUSCULAR HGB CONC 34.4 g/dL (33.0-36.5); MEAN CORPUSCULAR VOLUME 99.1 FL (78-98); MEAN PLATELET VOLUME 8.6 FL (7.4-10.4); MONOCYTES % (AUTO) 6.3 % (2-12); NEUTROPHILS % (AUTO) 54.3 % (42-75); PLATELET COUNT 235 X10'3 (140-440); RED BLOOD COUNT 3.23 X10'6 (4.20-5.60); WHITE BLOOD COUNT 4.8 X10'3 (4.5-11.0)
[2020-01-12 21:41] LABS: ALANINE AMINOTRANSFERASE 21 U/L (12-78); ALBUMIN 3.6 G/DL (3.4-5.0); ALBUMIN/GLOBULIN RATIO 1.2 (1.1-1.5); ALKALINE PHOSPHATASE 37 IU/L (46-116); ANION GAP 5 (8-16); ASPARTATE AMINO TRANSFERASE 14 U/L (10-37); BILIRUBIN,TOTAL 0.3 MG/DL (0.1-1.0); BLOOD UREA NITROGEN 13 MG/DL (7-18); BUN/CREATININE RATIO 18.3 (6.6-38.0); CALCIUM 8.4 MG/DL (8.5-10.1); CHLORIDE 107 MMOL/L (99-107); CREATININE 0.71 MG/DL (0.40-0.90); GLUCOSE 121 MG/DL (70-104); LIPASE 326 U/L (73-393); POTASSIUM 3.9 MMOL/L (3.5-5.1); SODIUM 141 MMOL/L (135-145); TOTAL CARBON DIOXIDE 29.1 MMOL/L (24-32); TOTAL PROTEIN 6.5 G/DL (6.4-8.2); eGFR > 90 ML/MIN
[2020-01-12 22:07] VITALS: BP 111/63
== END 2020-01-12 22:08 | disposition home or self-care (01) ==
LOC: ER 19:36
DX: R10.12 Left upper quadrant pain (principal); K21.9 Gastro-esophageal reflux disease without esophagitis; G43.909 Migraine, unspecified, not intractable, without status migrainosus; Z87.448 Personal history of other diseases of urinary system; F41.9 Anxiety disorder, unspecified; F32.9 Major depressive disorder, single episode, unspecified; Z79.899 Other long term (current) drug therapy; Z88.1 Allergy status to other antibiotic agents; Z88.2 Allergy status to sulfonamides; Z88.5 Allergy status to narcotic agent
CPT/HCPCS: 36415; 76775; 80053; 81001; 81025; 83690; 85025; 99284

== ENCOUNTER 2020-02-26 15:13 | Emergency (ER) | payer BC ==
[~2020-02-26] VITALS: Ht 162.6 cm; Wt 53.6 kg
[2020-02-26 15:44] VITALS: BP 146/75
[2020-02-26] MEDS ORDERED: loperamide 2mg capsule PO ONE (16:25)
[2020-02-26] MEDS ORDERED: ketorolac trometh. 30mg/ml inj. IV ONE (16:25)
[2020-02-26] MEDS ORDERED: normal saline 1000ml 1,000 ML IV ONE ×2 (16:25)
[2020-02-26] MEDS ORDERED: ondansetron/PF 4mg/2ml inj IV ONE (16:25)
[2020-02-26 17:01] LABS: BASOPHILS % (AUTO) 0.4 % (0-1); EOSINOPHILS % (AUTO) 0.3 % (0-6); HEMATOCRIT 38.5 % (35.0-45.0); HEMOGLOBIN 12.9 g/dl (12.0-16.0); LYMPHOCYTES # (AUTO) 1.4 X10'3 (1.1-4.8); LYMPHOCYTES % (AUTO) 26.5 % (21-51); MEAN CORPUSCULAR HEMOGLOBIN 33.5 PG (27.0-31.0); MEAN CORPUSCULAR HGB CONC 33.5 g/dL (33.0-36.5); MEAN PLATELET VOLUME 8.9 FL (7.4-10.4); MONOCYTES # (AUTO) 0.3 X10'3 (0-0.9); MONOCYTES % (AUTO) 5.2 % (2-12); NEUTROPHILS # (AUTO) 3.5 X10'3 (1.8-7.7); NEUTROPHILS % (AUTO) 67.6 % (42-75); PLATELET COUNT 279 X10'3 (140-440); RED BLOOD COUNT 3.85 X10'6 (4.20-5.60); RED CELL DISTRIBUTION WIDTH 12.3 % (11.5-14.5); WHITE BLOOD COUNT 5.2 X10'3 (4.5-11.0)
[2020-02-26 17:06] LABS: ALANINE AMINOTRANSFERASE 30 U/L (12-78); ALBUMIN 4.2 G/DL (3.4-5.0); ALBUMIN/GLOBULIN RATIO 1.3 (1.1-1.5); ALKALINE PHOSPHATASE 37 IU/L (46-116); ANION GAP 6 (8-16); ASPARTATE AMINO TRANSFERASE 18 U/L (10-37); BILIRUBIN,TOTAL 0.3 MG/DL (0.1-1.0); BLOOD UREA NITROGEN 12 MG/DL (7-18); BUN/CREATININE RATIO 17.9 (6.6-38.0); CALCIUM 8.7 MG/DL (8.5-10.1); CHLORIDE 107 MMOL/L (99-107); CREATININE 0.67 MG/DL (0.40-0.90); GLUCOSE 88 MG/DL (70-104); LIPASE 188 U/L (73-393); POTASSIUM 4.3 MMOL/L (3.5-5.1); SODIUM 142 MMOL/L (135-145); TOTAL CARBON DIOXIDE 28.7 MMOL/L (24-32); TOTAL PROTEIN 7.5 G/DL (6.4-8.2); eGFR > 90 ML/MIN
[2020-02-26] MEDS ORDERED: LOPE2CAP PO (17:22)
[2020-02-26] MEDS ORDERED: ONDA4TAB6 PO (17:22)
== END 2020-02-26 19:02 | disposition home or self-care (01) ==
LOC: ER 15:14
DX: K52.9 Noninfective gastroenteritis and colitis, unspecified (principal); Z20.828 Contact with and (suspected) exposure to other viral communicable diseases; G43.909 Migraine, unspecified, not intractable, without status migrainosus; K21.9 Gastro-esophageal reflux disease without esophagitis; Z90.49 Acquired absence of other specified parts of digestive tract; Z98.891 History of uterine scar from previous surgery; Z72.89 Other problems related to lifestyle; Z88.1 Allergy status to other antibiotic agents; Z88.2 Allergy status to sulfonamides; Z79.899 Other long term (current) drug therapy; Z88.8 Allergy status to other drugs, medicaments and biological substances
CPT/HCPCS: 36415; 80053; 83690; 85025; 87502; 87503; 96361; 96374; 96375; 99284; J1885; J2405; J7030

== ENCOUNTER 2020-10-08 19:59 | Emergency (ER) | payer BC ==
[~2020-10-08] VITALS: Ht 162.6 cm; Wt 56.8 kg
[~2020-10-08 19:59] MED LIST changes: +LOPE2CAP PO; +ONDA4TAB6 PO
[2020-10-08 20:31] VITALS: BP 101/58
--- NOTE | 2020-10-08 23:52 | NUR ---
WAS ASLEEP IN THE LOBBY WHEN SHE WAS CALLED TO COME INTO A ROOM.
== END 2020-10-09 00:53 | disposition home or self-care (01) ==
LOC: ER 19:59
DX: R00.2 Palpitations (principal); R07.89 Other chest pain; G43.909 Migraine, unspecified, not intractable, without status migrainosus; K21.9 Gastro-esophageal reflux disease without esophagitis; F41.9 Anxiety disorder, unspecified; F32.9 Major depressive disorder, single episode, unspecified; Z87.11 Personal history of peptic ulcer disease; Z87.440 Personal history of urinary (tract) infections; Z90.49 Acquired absence of other specified parts of digestive tract; Z98.890 Other specified postprocedural states; Z72.89 Other problems related to lifestyle; Z88.1 Allergy status to other antibiotic agents; Z88.8 Allergy status to other drugs, medicaments and biological substances; Z79.899 Other long term (current) drug therapy
CPT/HCPCS: 93005; 99283

== ENCOUNTER 2020-12-28 18:39 | Emergency (ER) | payer BC ==
[~2020-12-28] VITALS: Ht 162.6 cm; Wt 54.5 kg
[2020-12-28 18:50] VITALS: BP 121/76
[2020-12-28] MEDS ORDERED: ALBU6.7H9 INH (19:59)
== END 2020-12-28 20:16 | disposition home or self-care (01) ==
LOC: ER 18:40
DX: R07.81 Pleurodynia (principal); Z20.822 Contact with and (suspected) exposure to COVID-19; R06.02 Shortness of breath; R09.81 Nasal congestion; G43.909 Migraine, unspecified, not intractable, without status migrainosus; K21.9 Gastro-esophageal reflux disease without esophagitis; Z87.01 Personal history of pneumonia (recurrent); Z87.440 Personal history of urinary (tract) infections; Z87.81 Personal history of (healed) traumatic fracture; Z90.49 Acquired absence of other specified parts of digestive tract; Z98.891 History of uterine scar from previous surgery; Z72.89 Other problems related to lifestyle; Z88.1 Allergy status to other antibiotic agents; Z88.2 Allergy status to sulfonamides; Z79.899 Other long term (current) drug therapy
CPT/HCPCS: 71045; 87635; 99284; C9803

== ENCOUNTER 2021-01-26 19:03 | Emergency (ER) | payer SELFPAY ==
[~2021-01-26] VITALS: Ht 162.6 cm; Wt 54.0 kg
[~2021-01-26 19:03] MED LIST changes: +ALBU6.7H9 INH
[2021-01-26 19:45] LABS: CLARITY,URINE CLOUDY (Clear); COLOR,URINE YELLOW (Yellow); GLUCOSE, URINE NEGATIVE (Neg); KETONES,URINE NEGATIVE (Neg); LEUKOCYTE ESTERASE ,URINE NEGATIVE (Neg); NITRITES, URINE NEGATIVE (Neg); OCCULT BLOOD,URINE NEGATIVE (Neg); PH,URINE 7.5 (4.8-8.0); PROTEIN,URINE NEGATIVE (Neg); UROBILINOGEN,URINE 0.2 E.U/dL (0.2-1.0)
[2021-01-26 19:46] LABS: URINE HCG NEGATIVE (NEG)
[2021-01-26 19:50] LABS: UA COLLECTION TYPE CLN CATCH MIDSTREAM
[2021-01-26 19:53] LABS: AMORPHOUS PHOSPHATES 3+; BACTERIA,URINE FEW /HPF (Neg); MUCUS STRANDS NONE SEEN /LPF (Neg); RBC,URINE 0-2 /HPF (0-2); SQUAMOUS EPITHELIAL CELL,UR FEW /LPF (FEW); WBC,URINE 0-4 /HPF (0-4)
[2021-01-26 20:05] LABS: BASOPHILS % (AUTO) 0.3 % (0-1); EOSINOPHILS % (AUTO) 0.5 % (0-6); HEMATOCRIT 34.3 % (35.0-45.0); HEMOGLOBIN 11.8 g/dl (12.0-16.0); LYMPHOCYTES # (AUTO) 1.9 X10'3 (1.1-4.8); LYMPHOCYTES % (AUTO) 35.7 % (21-51); MEAN CORPUSCULAR HEMOGLOBIN 33.6 PG (27.0-31.0); MEAN CORPUSCULAR HGB CONC 34.4 g/dL (33.0-36.5); MEAN CORPUSCULAR VOLUME 97.5 FL (78-98); MEAN PLATELET VOLUME 8.4 FL (7.4-10.4); MONOCYTES # (AUTO) 0.4 X10'3 (0-0.9); MONOCYTES % (AUTO) 6.8 % (2-12); NEUTROPHILS # (AUTO) 3.1 X10'3 (1.8-7.7); NEUTROPHILS % (AUTO) 56.7 % (42-75); PLATELET COUNT 256 X10'3 (140-440); RED BLOOD COUNT 3.52 X10'6 (4.20-5.60); RED CELL DISTRIBUTION WIDTH 12.2 % (11.5-14.5); WHITE BLOOD COUNT 5.4 X10'3 (4.5-11.0)
[2021-01-26 20:17] LABS: ALANINE AMINOTRANSFERASE 26 U/L (12-78); ALBUMIN 3.8 G/DL (3.4-5.0); ALBUMIN/GLOBULIN RATIO 1.2 (1.1-1.5); ALKALINE PHOSPHATASE 37 IU/L (46-116); ANION GAP 7 (8-16); ASPARTATE AMINO TRANSFERASE 18 U/L (10-37); BILIRUBIN,TOTAL 0.4 MG/DL (0.1-1.0); BLOOD UREA NITROGEN 22 MG/DL (7-18); BUN/CREATININE RATIO 24.4 (6.6-38.0); CALCIUM 8.9 MG/DL (8.5-10.1); CHLORIDE 104 MMOL/L (99-107); GLUCOSE 91 MG/DL (70-104); LIPASE 196 U/L (73-393); POTASSIUM 3.9 MMOL/L (3.5-5.1); SODIUM 140 MMOL/L (135-145); TOTAL CARBON DIOXIDE 29.3 MMOL/L (24-32); TOTAL PROTEIN 7.1 G/DL (6.4-8.2); eGFR 73 ML/MIN
[2021-01-27] MEDS ORDERED: ketorolac trometh. 30mg/ml inj. IM ONE (00:20)
[2021-01-27] MEDS ORDERED: orphenadrine citrate 60mg/2ml inj. IM ONE (00:20)
[2021-01-27] MEDS ORDERED: ONDA4TAB6 PO (00:36)
[2021-01-27] MEDS ORDERED: ORPH100T2 PO (00:36)
[2021-01-27] MEDS ORDERED: IBUP-1984 PO (00:36)
[2021-01-27 00:50] VITALS: BP 109/60
== END 2021-01-27 00:51 | disposition home or self-care (01) ==
LOC: ER 19:04
DX: S39.011A Strain of muscle, fascia and tendon of abdomen, initial encounter (principal); R31.9 Hematuria, unspecified; R11.2 Nausea with vomiting, unspecified; G43.909 Migraine, unspecified, not intractable, without status migrainosus; K21.9 Gastro-esophageal reflux disease without esophagitis; F41.9 Anxiety disorder, unspecified; F32.9 Major depressive disorder, single episode, unspecified; Z87.11 Personal history of peptic ulcer disease; Z87.440 Personal history of urinary (tract) infections; Z90.49 Acquired absence of other specified parts of digestive tract; Z98.890 Other specified postprocedural states; Z72.89 Other problems related to lifestyle; Z88.2 Allergy status to sulfonamides; Z88.1 Allergy status to other antibiotic agents; Z88.8 Allergy status to other drugs, medicaments and biological substances; Z79.899 Other long term (current) drug therapy
CPT/HCPCS: 36415; 80053; 81001; 81025; 83690; 85025; 96372; 99284; J1885; J2360

== ENCOUNTER 2021-02-22 11:30 | Emergency (ER) | payer SELFPAY ==
[~2021-02-22] VITALS: Ht 162.6 cm; Wt 56.3 kg
[~2021-02-22 11:30] MED LIST changes: +ORPH100T2 PO
[2021-02-22 11:45] VITALS: BP 139/43
== END 2021-02-22 15:27 | disposition home or self-care (01) ==
LOC: ER 11:31
DX: M25.512 Pain in left shoulder (principal); R20.0 Anesthesia of skin; G43.909 Migraine, unspecified, not intractable, without status migrainosus; K21.9 Gastro-esophageal reflux disease without esophagitis; Z87.11 Personal history of peptic ulcer disease; Z87.440 Personal history of urinary (tract) infections; Z87.81 Personal history of (healed) traumatic fracture; Z98.49 Cataract extraction status, unspecified eye; Z98.891 History of uterine scar from previous surgery; Z72.89 Other problems related to lifestyle; Z88.1 Allergy status to other antibiotic agents; Z88.2 Allergy status to sulfonamides; Z88.8 Allergy status to other drugs, medicaments and biological substances; Z79.899 Other long term (current) drug therapy
CPT/HCPCS: 73030; 99283

== ENCOUNTER 2021-02-24 20:37 | Emergency (ER) | payer MEDICAID ==
[~2021-02-24] VITALS: Ht 162.6 cm; Wt 56.5 kg
[2021-02-24 20:48] VITALS: BP 122/71
[2021-02-24 21:38] LABS: BASOPHILS % (AUTO) 0.3 % (0-1); EOSINOPHILS % (AUTO) 0.6 % (0-6); HEMATOCRIT 31.1 % (35.0-45.0); LYMPHOCYTES # (AUTO) 1.5 X10'3 (1.1-4.8); LYMPHOCYTES % (AUTO) 38.7 % (21-51); MEAN CORPUSCULAR HEMOGLOBIN 34.4 PG (27.0-31.0); MEAN CORPUSCULAR HGB CONC 35.3 g/dL (33.0-36.5); MEAN CORPUSCULAR VOLUME 97.4 FL (78-98); MEAN PLATELET VOLUME 8.3 FL (7.4-10.4); MONOCYTES # (AUTO) 0.3 X10'3 (0-0.9); MONOCYTES % (AUTO) 6.8 % (2-12); NEUTROPHILS # (AUTO) 2.1 X10'3 (1.8-7.7); NEUTROPHILS % (AUTO) 53.6 % (42-75); PLATELET COUNT 215 X10'3 (140-440); RED CELL DISTRIBUTION WIDTH 12.3 % (11.5-14.5); WHITE BLOOD COUNT 3.9 X10'3 (4.5-11.0)
[2021-02-24 21:47] LABS: COLOR,URINE YELLOW (Yellow); GLUCOSE, URINE NEGATIVE (Neg); KETONES,URINE NEGATIVE (Neg); LEUKOCYTE ESTERASE ,URINE NEGATIVE (Neg); NITRITES, URINE NEGATIVE (Neg); OCCULT BLOOD,URINE NEGATIVE (Neg); PROTEIN,URINE NEGATIVE (Neg); URINE HCG NEGATIVE (NEG); UROBILINOGEN,URINE 0.2 E.U/dL (0.2-1.0)
[2021-02-24 21:51] LABS: ALANINE AMINOTRANSFERASE 32 U/L (12-78); ALBUMIN 3.8 G/DL (3.4-5.0); ALBUMIN/GLOBULIN RATIO 1.4 (1.1-1.5); ALKALINE PHOSPHATASE 34 IU/L (46-116); ANION GAP 7 (8-16); ASPARTATE AMINO TRANSFERASE 35 U/L (10-37); BILIRUBIN,TOTAL 0.2 MG/DL (0.1-1.0); BLOOD UREA NITROGEN 19 MG/DL (7-18); BUN/CREATININE RATIO 25.7 (6.6-38.0); CALCIUM 8.7 MG/DL (8.5-10.1); CHLORIDE 104 MMOL/L (99-107); CREATININE 0.74 MG/DL (0.40-0.90); GLUCOSE 94 MG/DL (70-104); POTASSIUM 3.5 MMOL/L (3.5-5.1); SODIUM 140 MMOL/L (135-145); TOTAL CARBON DIOXIDE 28.9 MMOL/L (24-32); TOTAL PROTEIN 6.6 G/DL (6.4-8.2); eGFR > 90 ML/MIN
[2021-02-24 21:55] LABS: CLARITY,URINE CLEAR (Clear); UA COLLECTION TYPE CLN CATCH MIDSTREAM
[2021-02-24 22:00] LABS: MAGNESIUM 2.1 MG/DL (1.5-2.4)
[2021-02-24 22:06] LABS: D-DIMER < 0.19 MG/L FEU (0-0.50)
== END 2021-02-25 03:15 | disposition home or self-care (01) ==
LOC: ER 20:38
DX: R07.89 Other chest pain (principal); G43.909 Migraine, unspecified, not intractable, without status migrainosus; K21.9 Gastro-esophageal reflux disease without esophagitis; F41.9 Anxiety disorder, unspecified; F32.9 Major depressive disorder, single episode, unspecified; F17.210 Nicotine dependence, cigarettes, uncomplicated; Z87.440 Personal history of urinary (tract) infections; Z87.11 Personal history of peptic ulcer disease; Z90.49 Acquired absence of other specified parts of digestive tract; Z98.890 Other specified postprocedural states; Z72.89 Other problems related to lifestyle; Z88.2 Allergy status to sulfonamides; Z88.1 Allergy status to other antibiotic agents; Z88.8 Allergy status to other drugs, medicaments and biological substances; Z79.899 Other long term (current) drug therapy
CPT/HCPCS: 36415; 71045; 80053; 81003; 81025; 83735; 83880; 84484; 85025; 85379; 85651; 93005; 99285

== ENCOUNTER 2021-11-26 12:11 | Emergency (ER) | payer SELFPAY ==
[~2021-11-26] VITALS: Ht 162.6 cm; Wt 54.0 kg
[~2021-11-26 12:11] MED LIST changes: +ALBU6.7H14 INH; -ALBU6.7H9 INH
[2021-11-26 12:25] VITALS: BP 117/65
[2021-11-26 13:08] LABS: BASOPHILS % (AUTO) 0.4 % (0-1); EOSINOPHILS % (AUTO) 0.3 % (0-6); HEMATOCRIT 36.7 % (35.0-45.0); HEMOGLOBIN 12.2 g/dl (12.0-16.0); LYMPHOCYTES # (AUTO) 1.6 X10'3 (1.1-4.8); LYMPHOCYTES % (AUTO) 32.3 % (21-51); MEAN CORPUSCULAR HEMOGLOBIN 32.8 PG (27.0-31.0); MEAN CORPUSCULAR HGB CONC 33.4 g/dL (33.0-36.5); MEAN CORPUSCULAR VOLUME 98.2 FL (78-98); MONOCYTES # (AUTO) 0.4 X10'3 (0-0.9); MONOCYTES % (AUTO) 7.3 % (2-12); NEUTROPHILS # (AUTO) 2.9 X10'3 (1.8-7.7); NEUTROPHILS % (AUTO) 59.7 % (42-75); PLATELET COUNT 265 X10'3 (140-440); RED BLOOD COUNT 3.73 X10'6 (4.20-5.60); RED CELL DISTRIBUTION WIDTH 12.5 % (11.5-14.5); WHITE BLOOD COUNT 4.9 X10'3 (4.5-11.0)
[2021-11-26 13:11] LABS: ALANINE AMINOTRANSFERASE 28 U/L (12-78); ALBUMIN 4.1 G/DL (3.4-5.0); ALBUMIN/GLOBULIN RATIO 1.3 (1.1-1.5); ALKALINE PHOSPHATASE 36 IU/L (46-116); ANION GAP 8 (8-16); ASPARTATE AMINO TRANSFERASE 18 U/L (10-37); BILIRUBIN,TOTAL 0.6 MG/DL (0.1-1.0); BLOOD UREA NITROGEN 17 MG/DL (7-18); BUN/CREATININE RATIO 22.1 (6.6-38.0); CALCIUM 9.1 MG/DL (8.5-10.1); CHLORIDE 103 MMOL/L (99-107); CREATININE 0.77 MG/DL (0.40-0.90); GLUCOSE 94 MG/DL (70-104); POTASSIUM 4.1 MMOL/L (3.5-5.1); SODIUM 139 MMOL/L (135-145); TOTAL CARBON DIOXIDE 28.4 MMOL/L (24-32); TOTAL PROTEIN 7.2 G/DL (6.4-8.2); eGFR 87 ML/MIN
== END 2021-11-26 14:50 | disposition left against medical advice (07) ==
LOC: ER 12:12
DX: R06.02 Shortness of breath (principal); Z53.21 Procedure and treatment not carried out due to patient leaving prior to being seen by health care provider
CPT/HCPCS: 36415; 71045; 80053; 83880; 84484; 85025; 93005

== ENCOUNTER 2022-02-18 16:28 | Emergency (ER) | payer BC ==
[~2022-02-18] VITALS: Ht 162.6 cm; Wt 70.5 kg
--- NOTE | 2022-02-18 18:50 | NUR ---
PT COMPLAINS OF INCREASED CP, SPOKE TO DR CHEEK, SAID REPEAT EKG
[2022-02-18 19:06] LABS: BASOPHILS % (AUTO) 0.4 % (0-1); EOSINOPHILS % (AUTO) 0.8 % (0-6); HEMOGLOBIN 11.7 g/dl (12.0-16.0); LYMPHOCYTES # (AUTO) 1.4 X10'3 (1.1-4.8); LYMPHOCYTES % (AUTO) 27.3 % (21-51); MEAN CORPUSCULAR HEMOGLOBIN 33.1 PG (27.0-31.0); MEAN CORPUSCULAR HGB CONC 33.4 g/dL (33.0-36.5); MEAN CORPUSCULAR VOLUME 99.2 FL (78-98); MONOCYTES # (AUTO) 0.3 X10'3 (0-0.9); MONOCYTES % (AUTO) 6.4 % (2-12); NEUTROPHILS # (AUTO) 3.3 X10'3 (1.8-7.7); NEUTROPHILS % (AUTO) 65.1 % (42-75); PLATELET COUNT 240 X10'3 (140-440); RED BLOOD COUNT 3.53 X10'6 (4.20-5.60); RED CELL DISTRIBUTION WIDTH 12.6 % (11.5-14.5); WHITE BLOOD COUNT 5.1 X10'3 (4.5-11.0)
[2022-02-18 19:27] LABS: ALANINE AMINOTRANSFERASE 26 U/L (12-78); ALBUMIN 3.6 G/DL (3.4-5.0); ALBUMIN/GLOBULIN RATIO 1.1 (1.1-1.5); ALKALINE PHOSPHATASE 34 IU/L (46-116); ANION GAP 9 (8-16); ASPARTATE AMINO TRANSFERASE 17 U/L (10-37); BILIRUBIN,TOTAL 0.3 MG/DL (0.1-1.0); BLOOD UREA NITROGEN 17 MG/DL (7-18); BUN/CREATININE RATIO 22.4 (6.6-38.0); CALCIUM 8.3 MG/DL (8.5-10.1); CHLORIDE 104 MMOL/L (99-107); CREATININE 0.76 MG/DL (0.40-0.90); GLUCOSE 89 MG/DL (70-104); POTASSIUM 3.7 MMOL/L (3.5-5.1); SODIUM 139 MMOL/L (135-145); TOTAL CARBON DIOXIDE 26.4 MMOL/L (24-32); TOTAL PROTEIN 6.8 G/DL (6.4-8.2); eGFR 88 ML/MIN
[2022-02-18 22:42] VITALS: BP 111/65
== END 2022-02-18 23:14 | disposition home or self-care (01) ==
LOC: ER 16:29
DX: R00.2 Palpitations (principal); G43.909 Migraine, unspecified, not intractable, without status migrainosus; K21.9 Gastro-esophageal reflux disease without esophagitis; Z88.1 Allergy status to other antibiotic agents; Z88.2 Allergy status to sulfonamides; Z90.49 Acquired absence of other specified parts of digestive tract; Z98.890 Other specified postprocedural states
CPT/HCPCS: 36415; 71045; 80053; 83880; 84484; 85025; 93005; 99285

== ENCOUNTER 2022-09-26 20:02 | Emergency (ER) | payer BC ==
[~2022-09-26] VITALS: Ht 162.6 cm; Wt 54.5 kg
[~2022-09-26 20:02] MED LIST changes: -ORPH100T2 PO; +ORPH100T4 PO
[2022-09-26 20:30] LABS: BASOPHILS % (AUTO) 0.4 % (0-1); EOSINOPHILS # (AUTO) 0.1 X10'3 (0-0.9); EOSINOPHILS % (AUTO) 1.5 % (0-6); HEMATOCRIT 34.2 % (35.0-45.0); HEMOGLOBIN 11.5 g/dl (12.0-16.0); LYMPHOCYTES # (AUTO) 1.4 X10'3 (1.1-4.8); LYMPHOCYTES % (AUTO) 36.3 % (21-51); MEAN CORPUSCULAR HEMOGLOBIN 32.9 PG (27.0-31.0); MEAN CORPUSCULAR HGB CONC 33.8 g/dL (33.0-36.5); MEAN CORPUSCULAR VOLUME 97.5 FL (78-98); MEAN PLATELET VOLUME 8.4 FL (7.4-10.4); MONOCYTES # (AUTO) 0.3 X10'3 (0-0.9); MONOCYTES % (AUTO) 6.7 % (2-12); NEUTROPHILS # (AUTO) 2.2 X10'3 (1.8-7.7); NEUTROPHILS % (AUTO) 55.1 % (42-75); PLATELET COUNT 240 X10'3 (140-440); WHITE BLOOD COUNT 3.9 X10'3 (4.5-11.0)
[2022-09-26 20:33] LABS: ALANINE AMINOTRANSFERASE 23 U/L (12-78); ALBUMIN 3.3 G/DL (3.4-5.0); ALKALINE PHOSPHATASE 40 IU/L (46-116); ANION GAP 8 (8-16); ASPARTATE AMINO TRANSFERASE 18 U/L (10-37); BILIRUBIN,TOTAL 0.2 MG/DL (0.1-1.0); BLOOD UREA NITROGEN 9 MG/DL (7-18); CALCIUM 8.7 MG/DL (8.5-10.1); CHLORIDE 106 MMOL/L (99-107); GLUCOSE 103 MG/DL (70-104); POTASSIUM 4.2 MMOL/L (3.5-5.1); SODIUM 141 MMOL/L (135-145); TOTAL CARBON DIOXIDE 26.6 MMOL/L (24-32); TOTAL PROTEIN 6.6 G/DL (6.4-8.2); eGFR > 90 ML/MIN
[2022-09-26 20:59] VITALS: BP 116/76; PULSE 58; RESP 16; TEMP 98; O2SAT 100
== END 2022-09-26 22:58 | disposition left against medical advice (07) ==
LOC: ER 20:02
DX: R07.89 Other chest pain (principal); Z53.21 Procedure and treatment not carried out due to patient leaving prior to being seen by health care provider
CPT/HCPCS: 36415; 71045; 80053; 83880; 84484; 85025; 93005; 99281

== ENCOUNTER 2022-10-26 16:49 | Emergency (ER) | payer BC ==
[~2022-10-26] VITALS: Ht 162.6 cm; Wt 56.8 kg
[2022-10-26 17:10] LABS: BASOPHILS % (AUTO) 0.5 % (0-1); EOSINOPHILS % (AUTO) 0.7 % (0-6); HEMOGLOBIN 12.2 g/dl (12.0-16.0); LYMPHOCYTES # (AUTO) 1.3 X10'3 (1.1-4.8); LYMPHOCYTES % (AUTO) 23.8 % (21-51); MEAN CORPUSCULAR HEMOGLOBIN 33.3 PG (27.0-31.0); MEAN CORPUSCULAR HGB CONC 33.8 g/dL (33.0-36.5); MEAN CORPUSCULAR VOLUME 98.7 FL (78-98); MEAN PLATELET VOLUME 7.8 FL (7.4-10.4); MONOCYTES # (AUTO) 0.2 X10'3 (0-0.9); MONOCYTES % (AUTO) 4.6 % (2-12); NEUTROPHILS # (AUTO) 3.8 X10'3 (1.8-7.7); NEUTROPHILS % (AUTO) 70.4 % (42-75); PLATELET COUNT 277 X10'3 (140-440); RED BLOOD COUNT 3.65 X10'6 (4.20-5.60); RED CELL DISTRIBUTION WIDTH 13.5 % (11.5-14.5); WHITE BLOOD COUNT 5.4 X10'3 (4.5-11.0)
[2022-10-26 17:15] VITALS: TEMP 98.5
[2022-10-26 17:22] LABS: ALANINE AMINOTRANSFERASE 31 U/L (12-78); ALBUMIN 3.8 G/DL (3.4-5.0); ALBUMIN/GLOBULIN RATIO 1.2 (1.1-1.5); ALKALINE PHOSPHATASE 40 IU/L (46-116); ANION GAP 5 (8-16); ASPARTATE AMINO TRANSFERASE 17 U/L (10-37); BILIRUBIN,TOTAL 0.4 MG/DL (0.1-1.0); BLOOD UREA NITROGEN 18 MG/DL (7-18); BUN/CREATININE RATIO 26.5 (10.0-20.0); CALCIUM 8.9 MG/DL (8.5-10.1); CHLORIDE 103 MMOL/L (99-107); CREATININE 0.68 MG/DL (0.40-0.90); GLUCOSE 120 MG/DL (70-104); POTASSIUM 4.1 MMOL/L (3.5-5.1); SODIUM 138 MMOL/L (135-145); TOTAL CARBON DIOXIDE 30.5 MMOL/L (24-32); TOTAL PROTEIN 6.9 G/DL (6.4-8.2); eGFR > 90 ML/MIN
[2022-10-26 17:29] LABS: PRO BRAIN NATRIURETIC PEPTIDE < 30 PG/ML (0-125)
[2022-10-26] MEDS ORDERED: MULT-1085 PO (19:29)
[2022-10-26 20:04] LABS: ETHANOL < 10 MG/DL (<10); MAGNESIUM 2.2 MG/DL (1.5-2.4); THYROID STIMULATING HORMONE 1.32 ulU/ml (0.34-4.50)
[2022-10-26 20:56] VITALS: BP 98/67; PULSE 62; RESP 18; O2SAT 100
== END 2022-10-26 20:57 | disposition home or self-care (01) ==
LOC: ER 16:49
DX: R00.2 Palpitations (principal); R42 Dizziness and giddiness; R53.1 Weakness; R07.89 Other chest pain; R06.6 Hiccough; G43.909 Migraine, unspecified, not intractable, without status migrainosus; I48.91 Unspecified atrial fibrillation; Z72.89 Other problems related to lifestyle; Z88.1 Allergy status to other antibiotic agents; Z88.2 Allergy status to sulfonamides; Z88.8 Allergy status to other drugs, medicaments and biological substances; Z79.899 Other long term (current) drug therapy
CPT/HCPCS: 36415; 71045; 80053; 80320; 83735; 83880; 84443; 84484; 85025; 93005; 99285

== ENCOUNTER 2024-04-23 19:15 | Emergency (ER) | payer BC ==
[~2024-04-23] VITALS: Ht 162.6 cm; Wt 60.0 kg
[~2024-04-23 19:15] MED LIST changes: -ALBU6.7H14 INH; -HYDR-4353 PO; -LOPE2CAP PO; +MULT-1085 PO; -ONDA4TAB6 PO; -ORPH100T4 PO
[2024-04-23 20:06] LABS: BASOPHILS % (AUTO) 0.4 % (0-1); EOSINOPHILS % (AUTO) 0.8 % (0-6); HEMOGLOBIN 12.1 g/dl (12.0-16.0); LYMPHOCYTES # (AUTO) 1.3 X10'3 (1.1-4.8); LYMPHOCYTES % (AUTO) 25.4 % (21-51); MEAN CORPUSCULAR HEMOGLOBIN 32.8 PG (27.0-31.0); MEAN CORPUSCULAR HGB CONC 33.6 g/dL (33.0-36.5); MEAN CORPUSCULAR VOLUME 97.6 FL (78-98); MEAN PLATELET VOLUME 8.3 FL (7.4-10.4); MONOCYTES # (AUTO) 0.3 X10'3 (0-0.9); MONOCYTES % (AUTO) 5.6 % (2-12); NEUTROPHILS # (AUTO) 3.6 X10'3 (1.8-7.7); NEUTROPHILS % (AUTO) 67.8 % (42-75); PLATELET COUNT 254 X10'3 (140-440); RED BLOOD COUNT 3.69 X10'6 (4.20-5.60); RED CELL DISTRIBUTION WIDTH 12.1 % (11.5-14.5); WHITE BLOOD COUNT 5.3 X10'3 (4.5-11.0)
[2024-04-23 20:11] LABS: ALANINE AMINOTRANSFERASE 21 U/L (12-78); ALBUMIN 3.7 G/DL (3.4-5.0); ALBUMIN/GLOBULIN RATIO 1.3 (1.1-1.5); ALKALINE PHOSPHATASE 34 IU/L (46-116); ANION GAP 5 (8-16); ASPARTATE AMINO TRANSFERASE 19 U/L (10-37); BILIRUBIN,TOTAL 0.3 MG/DL (0.1-1.0); BLOOD UREA NITROGEN 13 MG/DL (7-18); BUN/CREATININE RATIO 19.7 (10.0-20.0); CALCIUM 8.7 MG/DL (8.5-10.1); CHLORIDE 106 MMOL/L (99-107); CREATININE 0.66 MG/DL (0.40-0.90); GLUCOSE 98 MG/DL (70-104); SODIUM 141 MMOL/L (135-145); TOTAL CARBON DIOXIDE 30.2 MMOL/L (24-32); TOTAL PROTEIN 6.6 G/DL (6.4-8.2); eCRCL 104 ML/MIN; eGFR > 90 ML/MIN
[2024-04-23 20:20] LABS: PRO BRAIN NATRIURETIC PEPTIDE 46 PG/ML (0-125)
[2024-04-23 22:54] VITALS: BP 117/77; PULSE 55; RESP 16; TEMP 98.2; O2SAT 96
== END 2024-04-23 22:56 | disposition home or self-care (01) ==
LOC: ER 19:16
DX: R07.9 Chest pain, unspecified (principal); I48.91 Unspecified atrial fibrillation; K21.9 Gastro-esophageal reflux disease without esophagitis; F41.9 Anxiety disorder, unspecified; F32.A Depression, unspecified; Z88.2 Allergy status to sulfonamides; Z88.1 Allergy status to other antibiotic agents; Z90.49 Acquired absence of other specified parts of digestive tract
CPT/HCPCS: 36415; 71045; 80053; 83880; 84484; 85025; 93005; 99285

== ENCOUNTER 2024-09-23 09:37 | Emergency (ER) | payer BC | END 2024-09-23 11:36 | disposition left against medical advice (07) | LOC: ER 09:37 | DX: R05.9 Cough, unspecified (principal); R09.81 Nasal congestion; Z53.21 Procedure and treatment not carried out due to patient leaving prior to being seen by health care provider ==